=== PATIENT | female | born 1950 | race Caucasian/White ===

== ENCOUNTER 2024-05-31 17:00 | Inpatient (IN) ==
[2024-05-31 18:01] LABS: Appearance,Urine Clear (Clear); Bacteria,Urine Many /hpf (0); Bilirubin,Urine Negative (Negative); Color,Urine Yellow; Glucose,Urine (UA) Negative (Negative); Ketones,Urine Negative (Negative); Leukocyte Esterase,Urine Small /uL (Negative); Nitrate,Urine Positive (Negative); Protein,Urine 30 mg/dL (Negative); Urine Blood Negative ery/mcL (Negative); Urine RBC 1 /hpf (0-3); Urine Squamous Epithelial Cell 2 /hpf (0-4); Urine WBC 35 /hpf (0-4); Urobilinogen,Urine Normal
[2024-05-31] MEDS: CEFEPIME 2 GM VIAL IV ONE (18:18)
[2024-05-31 18:50] LABS: Basophils # (Auto) 0.03 K/mcL (0.00-0.30); Basophils % (Auto) 0.3 % (0.0-2.0); Eosinophils # (Auto) 0.48 K/mcL (0.00-0.70); Hematocrit 42.2 % (34.1-44.9); Hemoglobin 12.5 g/dL (11.2-15.7); Lymphocytes % (Auto) 12.5 % (15.5-49.0); Mean Cell Volume 90.8 fL (80.0-100.0); Mean Corpuscular HGB Conc 29.6 g/dL (31.0-36.0); Mean Platelet Volume 10.2 fL (8.8-12.5); Monocytes # (Auto) 0.71 K/mcL (0.10-0.90); Monocytes % (Auto) 5.9 % (1.0-12.0); Neutrophils % (Auto) 76.3 % (38.0-78.0); Platelet Count 268 K/mcL (140-440); RBC 4.65 M/mcL (3.59-5.38); Red Cell Distribution Width 15.4 % (11.5-14.5)
[2024-05-31 19:14] LABS: ALT/SGPT 18 U/L (<40); AST/SGOT 38 U/L (<32); Albumin 3.6 gm/dL (3.2-5.2); Albumin/Globulin Ratio 1.2 (1.0-2.3); Alkaline Phosphatase 55 U/L (39-117); Bilirubin,Total 0.2 mg/dL (0.1-1.0); Blood Urea Nitrogen 48 mg/dL (8-23); Calcium 9.4 mg/dL (8.6-10.4); Carbon Dioxide 30 mmol/L (22-30); Chloride 101 mmol/L (96-108); Globulin 2.9 gm/dL (2.2-3.7); Glomerular Filtration Rate 37; Glucose 145 mg/dL (70-105); Potassium 5.5 mmol/L (3.3-5.1); Sodium 140 mmol/L (133-145); Thyroid Stimulating Hormone 4.72 uIU/mL (0.27-5.01)
[2024-05-31] MEDS: AZITHROMYCIN 500 MG in DEXTROSE 5% IN WATER 250 ML IV ONE (19:16)
[2024-05-31] MEDS ORDERED: DEXTROSE 50% 50 ML VIAL IV PRN ×2 (21:26)
[2024-05-31] MEDS ORDERED: SENNOSIDES 1 TABLET PO PRN (21:26)
[2024-05-31] MEDS ORDERED: ALBUTEROL SULFATE 2.5 MG/3 ML NEBULIZER NEB PRN (21:26)
[2024-05-31] MEDS ORDERED: DEXTROSE 31 GM ORAL.SUSP PO PRN ×2 (21:26)
[2024-05-31] MEDS ORDERED: LACTULOSE 20 GM/30 ML ORAL.SOL PO PRN (21:26)
[2024-05-31] MEDS ORDERED: ONDANSETRON 4 MG/2 ML VIAL IV PRN (21:26)
[2024-05-31] MEDS: DOCUSATE SODIUM 100 MG CAPSULE PO SCH (22:30)
[2024-05-31] MEDS: HEPARIN 5,000 UNIT/ML VIAL SQ SCH (22:40)
[2024-05-31] MEDS: 0.9 % SODIUM CHLORIDE 10 ML SYRINGE IV SCH (22:40)
[2024-05-31] MEDS: INSULIN LISPRO 1 UNIT/0.01 ML UNIT SQ SCH (22:46)
[2024-05-31 22:53] LABS: ABG Methemoglobin 0.3 % (0.4-1.5); Total Hemoglobin 13.1 gm/Dl (12.0-15.0); VBG Base Excess 4 (-2-3); VBG HCO3 31.5 mmol/L (24.0-28.0); VBG Oxygen Saturation 89.4 % (40.0-70.0); VBG PCO2 61.2 mmHg (41.0-51.0); VBG PH 7.33 U (7.32-7.42); VBG PO2 70.5 mmHg (25.0-40.0); VBG Total CO2 33.4 mmol/L (25.0-29.0)
[2024-05-31] MEDS: 0.9 % SODIUM CHLORIDE 1,000 ML IV ONE (23:10)
[2024-06-01] MEDS: IPRATROPIUM/ALBUTEROL 3 ML AMPUL.NEB NEB SCH
[2024-06-01] MEDS: CEFEPIME 2 GM VIAL IV SCH (00:30)
[2024-06-01 00:57] LABS: ABG Methemoglobin 0.4 % (0.4-1.5); Total Hemoglobin 12.9 gm/Dl (12.0-15.0); VBG Base Excess 3 (-2-3); VBG HCO3 30.9 mmol/L (24.0-28.0); VBG Oxygen Saturation 81.5 % (40.0-70.0); VBG PCO2 62.5 mmHg (41.0-51.0); VBG PH 7.31 U (7.32-7.42); VBG PO2 53.7 mmHg (25.0-40.0); VBG Total CO2 32.8 mmol/L (25.0-29.0)
[2024-06-01 05:37] LABS: Basophils # (Auto) 0.03 K/mcL (0.00-0.30); Basophils % (Auto) 0.3 % (0.0-2.0); Eosinophils # (Auto) 0.55 K/mcL (0.00-0.70); Eosinophils % (Auto) 6.1 % (0.0-7.0); Hematocrit 40.7 % (34.1-44.9); Hemoglobin 11.9 g/dL (11.2-15.7); Lymphocytes % (Auto) 22.2 % (15.5-49.0); Mean Cell Volume 92.3 fL (80.0-100.0); Mean Corpuscular HGB Conc 29.2 g/dL (31.0-36.0); Mean Platelet Volume 9.9 fL (8.8-12.5); Monocytes # (Auto) 0.68 K/mcL (0.10-0.90); Monocytes % (Auto) 7.6 % (1.0-12.0); Neutrophils % (Auto) 62.7 % (38.0-78.0); Platelet Count 229 K/mcL (140-440); RBC 4.41 M/mcL (3.59-5.38); Red Cell Distribution Width 15.3 % (11.5-14.5)
[2024-06-01 05:46] LABS: ABG Methemoglobin 0.2 % (0.4-1.5); Total Hemoglobin 13.4 gm/Dl (12.0-15.0); VBG Base Excess 2 (-2-3); VBG HCO3 28.4 mmol/L (24.0-28.0); VBG Oxygen Saturation 87.1 % (40.0-70.0); VBG PH 7.36 U (7.32-7.42); VBG PO2 65.7 mmHg (25.0-40.0); VBG Total CO2 29.9 mmol/L (25.0-29.0)
[2024-06-01 06:08] LABS: ALT/SGPT 15 U/L (<40); AST/SGOT 34 U/L (<32); Albumin 3.2 gm/dL (3.2-5.2); Albumin/Globulin Ratio 1.2 (1.0-2.3); Alkaline Phosphatase 46 U/L (39-117); Bilirubin,Direct < 0.2 mg/dL (0-0.3); Bilirubin,Total 0.2 mg/dL (0.1-1.0); Blood Urea Nitrogen 45 mg/dL (8-23); Calcium 9.1 mg/dL (8.6-10.4); Carbon Dioxide 29 mmol/L (22-30); Chloride 106 mmol/L (96-108); Globulin 2.6 gm/dL (2.2-3.7); Glomerular Filtration Rate 37; Glucose 57 mg/dL (70-105); Lactate Dehydrogenase 122 U/L (135-225); Phosphorous 4.1 mg/dL (2.5-4.5); Potassium 4.5 mmol/L (3.3-5.1); Sodium 144 mmol/L (133-145); Triglycerides 140 mg/dL (<150); Uric Acid 3.6 mg/dL (2.5-8.0)
[2024-06-01] MEDS: FUROSEMIDE 20 MG TABLET PO SCH (14:52)
[2024-06-01] MEDS: METOPROLOL SUCCINATE 25 MG TAB.XL.24H PO SCH (14:52)
[2024-06-01] MEDS: INSULIN GLARGINE, HUMAN 1 UNIT/0.01 ML SQ SCH (20:14)
[2024-06-01] MEDS: AMITRIPTYLINE 25 MG TABLET PO SCH (20:15)
[2024-06-01] MEDS: SERTRALINE 50 MG TABLET PO SCH (20:15)
[2024-06-01] MEDS: ACETAMINOPHEN 325 MG TABLET PO PRN (20:15)
[2024-06-01] MEDS: PREGABALIN 75 MG CAPSULE PO SCH (20:15)
[2024-06-02 05:42] LABS: Basophils # (Auto) 0.03 K/mcL (0.00-0.30); Basophils % (Auto) 0.4 % (0.0-2.0); Eosinophils # (Auto) 0.54 K/mcL (0.00-0.70); Eosinophils % (Auto) 6.4 % (0.0-7.0); Hematocrit 39.8 % (34.1-44.9); Lymphocytes # (Auto) 1.71 K/mcL (1.50-4.80); Lymphocytes % (Auto) 20.1 % (15.5-49.0); Mean Cell Volume 89.6 fL (80.0-100.0); Mean Corpuscular HGB Conc 30.2 g/dL (31.0-36.0); Mean Platelet Volume 10.3 fL (8.8-12.5); Monocytes # (Auto) 0.69 K/mcL (0.10-0.90); Monocytes % (Auto) 8.1 % (1.0-12.0); Neutrophils % (Auto) 63.8 % (38.0-78.0); Platelet Count 215 K/mcL (140-440); RBC 4.44 M/mcL (3.59-5.38); Red Cell Distribution Width 15.5 % (11.5-14.5); WBC 8.5 K/mcL (4.5-11.0)
[2024-06-02 06:19] LABS: ALT/SGPT 17 U/L (<40); AST/SGOT 37 U/L (<32); Albumin 3.3 gm/dL (3.2-5.2); Albumin/Globulin Ratio 1.2 (1.0-2.3); Alkaline Phosphatase 47 U/L (39-117); Bilirubin,Direct < 0.2 mg/dL (0-0.3); Bilirubin,Total 0.2 mg/dL (0.1-1.0); Blood Urea Nitrogen 40 mg/dL (8-23); Calcium 8.9 mg/dL (8.6-10.4); Carbon Dioxide 31 mmol/L (22-30); Chloride 102 mmol/L (96-108); Globulin 2.7 gm/dL (2.2-3.7); Glomerular Filtration Rate 34; Glucose 105 mg/dL (70-105); Lactate Dehydrogenase 126 U/L (135-225); Phosphorous 4.5 mg/dL (2.5-4.5); Potassium 4.5 mmol/L (3.3-5.1); Sodium 141 mmol/L (133-145); Triglycerides 199 mg/dL (<150); Uric Acid 4.1 mg/dL (2.5-8.0)
[2024-06-02] MEDS: LEVOTHYROXINE 25 MCG TABLET PO SCH (07:48)
[2024-06-02] MEDS: LEVOTHYROXINE 100 MCG TABLET PO SCH (07:48)
[2024-06-02] MEDS: CLOPIDOGREL 75 MG TABLET PO SCH (09:07)
[2024-06-02] MEDS: ASPIRIN 81 MG TAB.CHEW PO SCH (09:07)
[2024-06-02] MEDS: ALLOPURINOL 300 MG TABLET PO SCH (09:07)
[2024-06-02] MEDS: ATORVASTATIN 40 MG TABLET PO SCH (09:07)
[2024-06-02] MEDS: FLU VACC TS2024-25(65YR UP)/PF 180 MCG/0.5 ML SYRINGE IM ONE (09:16)
[2024-06-02] MEDS ORDERED: CEFEPIME 2 GM VIAL IV SCH (21:00)
== END 2024-06-02 11:08 | disposition home health service (06) | DRG 70 ==
LOC: ED 17:00 → ICU 21:22
PROVIDERS: ADMIT Internal Medicine; ATTEND Internal Medicine

== ENCOUNTER 2024-06-26 13:49 | Inpatient (IN) ==
[2024-06-26] MEDS ORDERED: IOPAMIDOL 100 ML BOTTLE IV ONE (13:50)
[2024-06-26] MEDS: DEXTROSE 50% 50 ML SYRINGE IV ONE ×2 (14:14→17:24)
[2024-06-26] MEDS: DEXTROSE 50% 50 ML VIAL IV ONE (14:15)
[2024-06-26] MEDS: 0.9 % SODIUM CHLORIDE 1,000 ML IV ONE (14:41)
[2024-06-26 15:14] LABS: Basophils # (Auto) 0.04 K/mcL (0.00-0.30); Basophils % (Auto) 0.3 % (0.0-2.0); Eosinophils # (Auto) 0.35 K/mcL (0.00-0.70); Hematocrit 43.5 % (34.1-44.9); Hemoglobin 13.2 g/dL (11.2-15.7); Lymphocytes # (Auto) 2.54 K/mcL (1.50-4.80); Lymphocytes % (Auto) 21.8 % (15.5-49.0); Mean Cell Volume 89.9 fL (80.0-100.0); Mean Corpuscular HGB Conc 30.3 g/dL (31.0-36.0); Monocytes % (Auto) 8.6 % (1.0-12.0); Neutrophils % (Auto) 65.8 % (38.0-78.0); Platelet Count 257 K/mcL (140-440); RBC 4.84 M/mcL (3.59-5.38); WBC 11.7 K/mcL (4.5-11.0)
[2024-06-26 15:24] LABS: Alcohol, Blood < 10.1 mg/dL; Alcohol,Blood < 0.010 gm/dL (<0.010)
[2024-06-26 15:36] LABS: ALT/SGPT 18 U/L (<40); AST/SGOT 38 U/L (<32); Albumin 3.6 gm/dL (3.2-5.2); Albumin/Globulin Ratio 1.2 (1.0-2.3); Alkaline Phosphatase 47 U/L (39-117); Bilirubin,Total 0.2 mg/dL (0.1-1.0); Blood Urea Nitrogen 61 mg/dL (8-23); Calcium 9.6 mg/dL (8.6-10.4); Carbon Dioxide 25 mmol/L (22-30); Chloride 102 mmol/L (96-108); Glomerular Filtration Rate 37; Glucose 123 mg/dL (70-105); Potassium 5.3 mmol/L (3.3-5.1); Sodium 139 mmol/L (133-145); Thyroid Stimulating Hormone 4.84 uIU/mL (0.27-5.01)
[2024-06-26] MEDS: NALOXONE 2 MG/2 ML SYRINGE ONE (15:54)
[2024-06-26 15:55] LABS: Free T4 (Free Thyroxine) 0.99 ng/dL (0.93-1.70)
[2024-06-26] MEDS: DEXTROSE 5%-NS 1,000 ML IV SCH ×2 (15:59→17:24)
[2024-06-26 16:06] LABS: Appearance,Urine HAZY (Clear); Color,Urine YELLOW
[2024-06-26 16:07] LABS: Bacteria,Urine FEW /hpf (0); Bilirubin,Urine Negative (Negative); Glucose,Urine (UA) Negative (Negative); Ketones,Urine Negative (Negative); Leukocyte Esterase,Urine 500 /uL (Negative); Mucus,Urine FEW /hpf; Nitrate,Urine Negative (Negative); Protein,Urine Negative (Negative); Specific Gravity,Urine 1.014 (1.000-1.035); Urine Blood Negative (Negative); Urine RBC 5 /hpf (0-3); Urine Squamous Epithelial Cell 4 /hpf (0-4); Urine Transitional Epi Cells < 1 /hpf (0-2); Urine WBC 96 /hpf (0-4); Urobilinogen,Urine Negative
[2024-06-26 16:16] LABS: Amphetamine Screen,Urine None detected; Barbiturate Screen,Urine None detected; Benzodiazepines Screen,Urine None detected; Cannabinoid Screen,Urine None detected; Cocaine Screen,Urine None detected; Fentanyl, Urine Screen None Detected; Opiate Screen,Urine None detected; Oxycodone, Urine Screen None detected; Phencyclidine Screen,Urine None detected
[2024-06-26] MEDS: cefTRIAXone 1 GM VIAL IV ONE (16:39)
[2024-06-26] MEDS: DEXTROSE 25 % 10ML SYRINGE (PEDIATRIC) IV ONE (17:18)
[2024-06-26] MEDS ORDERED: MAGNESIUM SULFATE 2 GM/50 ML BAG IV PRN (19:43)
[2024-06-26] MEDS ORDERED: POTASSIUM CHLORIDE 40 MEQ in DEXTROSE 5% IN WATER 500 ML IV PRN (19:43)
[2024-06-26] MEDS ORDERED: METOCLOPRAMIDE 10 MG/2 ML VIAL IV PRN (19:43)
[2024-06-26] MEDS ORDERED: LABETALOL HCL 20 MG/4 ML VIAL IV PRN (19:43)
[2024-06-26] MEDS ORDERED: DEXTROSE 31 GM ORAL.SUSP PO PRN (19:43)
[2024-06-26] MEDS ORDERED: ONDANSETRON 4 MG/2 ML VIAL IV PRN (19:43)
[2024-06-26] MEDS ORDERED: POLYETHYLENE GLYCOL 3350 17 GM PACKET PO PRN (19:43)
[2024-06-26] MEDS ORDERED: POTASSIUM CHLORIDE 20 MEQ TABLET PO PRN ×2 (19:43)
[2024-06-26] MEDS ORDERED: SENNOSIDES 1 TABLET PO PRN (19:43)
[2024-06-26] MEDS ORDERED: DEXTROSE 50% 50 ML VIAL IV PRN (19:43)
[2024-06-26] MEDS: LEVOFLOXACIN 750 MG/150 ML BAG IV SCH (20:37)
[2024-06-26] MEDS: DEXTROSE 5%-NS 500 ML IV ONE (20:37)
[2024-06-26] MEDS: HEPARIN 5,000 UNIT/ML VIAL SQ SCH (20:37)
[2024-06-26] MEDS: DOCUSATE SODIUM 100 MG CAPSULE PO SCH (20:37)
[2024-06-26] MEDS: INSULIN LISPRO 1 UNIT/0.01 ML UNIT SQ SCH (20:47)
[2024-06-27 06:08] LABS: Basophils # (Auto) 0.03 K/mcL (0.00-0.30); Basophils % (Auto) 0.4 % (0.0-2.0); Eosinophils # (Auto) 0.37 K/mcL (0.00-0.70); Eosinophils % (Auto) 5.2 % (0.0-7.0); Hematocrit 39.6 % (34.1-44.9); Hemoglobin 11.7 g/dL (11.2-15.7); Lymphocytes # (Auto) 1.28 K/mcL (1.50-4.80); Lymphocytes % (Auto) 17.9 % (15.5-49.0); Mean Cell Volume 91.5 fL (80.0-100.0); Mean Corpuscular HGB Conc 29.5 g/dL (31.0-36.0); Monocytes # (Auto) 0.67 K/mcL (0.10-0.90); Monocytes % (Auto) 9.4 % (1.0-12.0); Neutrophils % (Auto) 66.5 % (38.0-78.0); Platelet Count 193 K/mcL (140-440); RBC 4.33 M/mcL (3.59-5.38); Red Cell Distribution Width 16.3 % (11.5-14.5); WBC 7.2 K/mcL (4.5-11.0)
[2024-06-27 06:43] LABS: ALT/SGPT 15 U/L (<40); AST/SGOT 30 U/L (<32); Albumin 3.5 gm/dL (3.2-5.2); Albumin/Globulin Ratio 1.3 (1.0-2.3); Alkaline Phosphatase 43 U/L (39-117); Bilirubin,Direct < 0.2 mg/dL (0-0.3); Bilirubin,Total < 0.2 mg/dL (0.1-1.0); Blood Urea Nitrogen 46 mg/dL (8-23); Calcium 8.8 mg/dL (8.6-10.4); Carbon Dioxide 28 mmol/L (22-30); Chloride 107 mmol/L (96-108); Globulin 2.6 gm/dL (2.2-3.7); Glomerular Filtration Rate 44; Glucose 78 mg/dL (70-105); Lactate Dehydrogenase 134 U/L (135-225); Phosphorous 3.7 mg/dL (2.5-4.5); Potassium 5.1 mmol/L (3.3-5.1); Sodium 143 mmol/L (133-145); Triglycerides 106 mg/dL (<150); Uric Acid 3.7 mg/dL (2.5-8.0)
[2024-06-27] MEDS: AMPICILLIN SODIUM 1 GM in 0.9 % SODIUM CHLORIDE 50 ML IV SCH (15:26)
[2024-06-27] MEDS: GABAPENTIN 300 MG CAPSULE PO SCH (20:28)
[2024-06-27] MEDS: AMITRIPTYLINE 25 MG TABLET PO SCH (20:28)
[2024-06-28] MEDS: LEVOTHYROXINE 25 MCG TABLET PO SCH (08:02)
[2024-06-28] MEDS: LEVOTHYROXINE 100 MCG TABLET PO SCH (08:02)
[2024-06-28] MEDS: ASPIRIN 81 MG TAB.CHEW PO SCH (09:02)
[2024-06-28] MEDS: ATORVASTATIN 40 MG TABLET PO SCH (09:02)
[2024-06-28] MEDS: amLODIPine 5 MG TABLET PO SCH (09:02)
[2024-06-28] MEDS: METOPROLOL SUCCINATE 25 MG TAB.XL.24H PO SCH (09:02)
[2024-06-28] MEDS: ALLOPURINOL 300 MG TABLET PO SCH (09:02)
[2024-06-28] MEDS: PREGABALIN 25 MG CAPSULE PO SCH (09:15)
[2024-06-28] MEDS: PREGABALIN 75 MG CAPSULE PO SCH (09:23)
[2024-06-28] MEDS: glipiZIDE 5 MG TABLET PO SCH (11:02)
[2024-06-28] MEDS: IPRATROPIUM/ALBUTEROL 3 ML AMPUL.NEB NEB PRN (13:46)
[2024-06-28] MEDS: GABAPENTIN 300 MG CAPSULE PO SCH (21:53)
== END 2024-06-29 11:30 | DRG 689 ==
LOC: ED 13:49 → MEDSUR 19:34
PROVIDERS: ADMIT Internal Medicine; ATTEND Internal Medicine

== ENCOUNTER 2024-10-03 17:17 | Inpatient (IN) ==
[2024-10-03 18:03] LABS: Basophils # (Auto) 0.04 K/mcL (0.00-0.30); Basophils % (Auto) 0.3 % (0.0-2.0); Eosinophils # (Auto) 0.36 K/mcL (0.00-0.70); Hematocrit 40.7 % (34.1-44.9); Hemoglobin 12.8 g/dL (11.2-15.7); Lymphocytes # (Auto) 1.48 K/mcL (1.50-4.80); Lymphocytes % (Auto) 12.5 % (15.5-49.0); Mean Cell Volume 90.4 fL (80.0-100.0); Mean Corpuscular HGB Conc 31.4 g/dL (31.0-36.0); Mean Platelet Volume 10.4 fL (8.8-12.5); Monocytes # (Auto) 0.93 K/mcL (0.10-0.90); Monocytes % (Auto) 7.9 % (1.0-12.0); Neutrophils % (Auto) 75.5 % (38.0-78.0); Platelet Count 202 K/mcL (140-440); Red Cell Distribution Width 15.8 % (11.5-14.5); WBC 11.8 K/mcL (4.5-11.0)
[2024-10-03 18:12] LABS: Prothrombin Time 13.5 sec (11.9-14.5)
[2024-10-03 18:18] LABS: proBNP 52.6 pg/mL (<450.0)
[2024-10-03 18:27] LABS: ALT/SGPT 23 U/L (<40); AST/SGOT 29 U/L (<32); Albumin 4.1 gm/dL (3.2-5.2); Albumin/Globulin Ratio 1.1 (1.0-2.3); Alkaline Phosphatase 127 U/L (39-117); Bilirubin,Total 0.2 mg/dL (0.1-1.0); Blood Urea Nitrogen 78 mg/dL (8-23); Calcium 11.3 mg/dL (8.6-10.4); Carbon Dioxide 27 mmol/L (22-30); Chloride 98 mmol/L (96-108); Globulin 3.6 gm/dL (2.2-3.7); Glomerular Filtration Rate 37; Glucose 304 mg/dL (70-105); Potassium 5.7 mmol/L (3.3-5.1); Sodium 137 mmol/L (133-145)
[2024-10-03 18:30] LABS: ABG Methemoglobin 0.3 % (0.4-1.5); Total Hemoglobin 14.1 gm/Dl (12.0-15.0); VBG Base Excess 0 (-2-3); VBG HCO3 27.1 mmol/L (24.0-28.0); VBG Oxygen Saturation 91.2 % (40.0-70.0); VBG PCO2 56.4 mmHg (41.0-51.0); VBG PO2 88.9 mmHg (25.0-40.0); VBG Total CO2 28.9 mmol/L (25.0-29.0)
[2024-10-03] MEDS: IPRATROPIUM/ALBUTEROL 3 ML AMPUL.NEB NEB ONE (19:25)
[2024-10-03] MEDS: 0.9 % SODIUM CHLORIDE 500 ML IV ONE ×3 (19:32→22:02)
[2024-10-03] MEDS: LEVOFLOXACIN 750 MG/150 ML BAG IV ONE (19:32)
[2024-10-03 20:02] LABS: Appearance,Urine Clear (Clear); Bacteria,Urine Many /hpf (0); Bilirubin,Urine Negative (Negative); Color,Urine Yellow; Glucose,Urine (UA) 500 mg/dL (Negative); Ketones,Urine Negative (Negative); Leukocyte Esterase,Urine Negative /uL (Negative); Nitrate,Urine Negative (Negative); PH,Urine 5.5 (5.0-9.0); Protein,Urine Negative (Negative); Specific Gravity,Urine 1.015 (1.000-1.035); Urine Blood Negative ery/mcL (Negative); Urine RBC 0 /hpf (0-3); Urine Squamous Epithelial Cell 1 /hpf (0-4); Urine WBC 12 /hpf (0-4); Urobilinogen,Urine Normal
[2024-10-03] MEDS: INSULIN REGULAR, HUMAN 1 UNIT/0.01 ML UNIT IV ONE (21:34)
[2024-10-03] MEDS: FUROSEMIDE 20 MG/2 ML VIAL IV ONE (21:34)
[2024-10-03 23:10] LABS: ABG Methemoglobin 0.1 % (0.4-1.5); Total Hemoglobin 12.8 gm/Dl (12.0-15.0); VBG Base Excess -1 (-2-3); VBG HCO3 23.6 mmol/L (24.0-28.0); VBG Oxygen Saturation 87.8 % (40.0-70.0); VBG PCO2 38.6 mmHg (41.0-51.0); VBG PO2 67.1 mmHg (25.0-40.0); VBG Total CO2 24.8 mmol/L (25.0-29.0)
[2024-10-03 23:24] LABS: Blood Urea Nitrogen 72 mg/dL (8-23); Calcium 10.3 mg/dL (8.6-10.4); Carbon Dioxide 25 mmol/L (22-30); Chloride 101 mmol/L (96-108); Glomerular Filtration Rate 40; Glucose 230 mg/dL (70-105); Potassium 4.8 mmol/L (3.3-5.1); Sodium 138 mmol/L (133-145)
[2024-10-03] MEDS: ACETAMINOPHEN 1,000 MG/100 ML BAG IV ONE (23:56)
[2024-10-04] MEDS: fentaNYL 100 MCG/2 ML VIAL IV ONE (03:16)
[2024-10-04] MEDS ORDERED: MEROPENEM 1 GM in 0.9 % SODIUM CHLORIDE 50 ML IV SCH (03:30)
[2024-10-04] MEDS: MEROPENEM 1 GM in 0.9 % SODIUM CHLORIDE 50 ML IV ONE (03:57)
[2024-10-04 07:43] LABS: Basophils # (Auto) 0.03 K/mcL (0.00-0.30); Basophils % (Auto) 0.3 % (0.0-2.0); Eosinophils # (Auto) 0.44 K/mcL (0.00-0.70); Eosinophils % (Auto) 4.5 % (0.0-7.0); Hematocrit 38.4 % (34.1-44.9); Lymphocytes # (Auto) 2.31 K/mcL (1.50-4.80); Lymphocytes % (Auto) 23.8 % (15.5-49.0); Mean Cell Volume 90.1 fL (80.0-100.0); Mean Corpuscular HGB Conc 31.3 g/dL (31.0-36.0); Mean Platelet Volume 10.3 fL (8.8-12.5); Monocytes # (Auto) 0.78 K/mcL (0.10-0.90); Neutrophils % (Auto) 62.6 % (38.0-78.0); Platelet Count 188 K/mcL (140-440); RBC 4.26 M/mcL (3.59-5.38); Red Cell Distribution Width 15.9 % (11.5-14.5); WBC 9.7 K/mcL (4.5-11.0)
[2024-10-04 08:05] LABS: ALT/SGPT 18 U/L (<40); AST/SGOT 26 U/L (<32); Albumin 3.5 gm/dL (3.2-5.2); Albumin/Globulin Ratio 1.1 (1.0-2.3); Alkaline Phosphatase 92 U/L (39-117); Bilirubin,Direct 0.2 mg/dL (<0.3); Bilirubin,Total 0.4 mg/dL (0.1-1.0); Blood Urea Nitrogen 66 mg/dL (8-23); Calcium 10.1 mg/dL (8.6-10.4); Carbon Dioxide 26 mmol/L (22-30); Chloride 98 mmol/L (96-108); Globulin 3.2 gm/dL (2.2-3.7); Glomerular Filtration Rate 40; Glucose 139 mg/dL (70-105); Lactate Dehydrogenase 126 U/L (135-225); Potassium 4.4 mmol/L (3.3-5.1); Sodium 138 mmol/L (133-145); Triglycerides 150 mg/dL (<150); Uric Acid 4.7 mg/dL (2.5-8.0)
[2024-10-04] MEDS ORDERED: LEVOTHYROXINE 100 MCG VIAL IV SCH (08:25)
[2024-10-04] MEDS ORDERED: DEXTROSE 31 GM ORAL.SUSP PO PRN (08:27)
[2024-10-04] MEDS ORDERED: DEXTROSE 50% 50 ML VIAL IV PRN (08:27)
[2024-10-04] MEDS: LEVOTHYROXINE 100 MCG VIAL IV SCH ×2 (08:47)
[2024-10-04] MEDS ORDERED: PATIENTS OWN MEDICATION 1 DOSE MISCELL INH PRN (12:11)
[2024-10-04 13:32] LABS: Hemoglobin A1C 9.3 % Hgb (4.0-6.0)
[2024-10-04] MEDS: INSULIN LISPRO 1 UNIT/0.01 ML UNIT SQ SCH (13:46)
[2024-10-04] MEDS: MEROPENEM 1 GM in 0.9 % SODIUM CHLORIDE 50 ML IV SCH (16:08)
[2024-10-04] MEDS: HEPARIN 5,000 UNIT/ML VIAL SQ SCH (16:09)
[2024-10-04] MEDS ORDERED: HEPARIN 5,000 UNIT/ML VIAL SQ SCH (21:00)
[2024-10-04] MEDS: AMITRIPTYLINE 25 MG TABLET PO SCH (21:19)
[2024-10-04] MEDS: SERTRALINE 50 MG TABLET PO SCH (21:19)
[2024-10-04] MEDS: fentaNYL 100 MCG/2 ML VIAL IV PRN (22:04)
[2024-10-05 06:05] LABS: Basophils # (Auto) 0.05 K/mcL (0.00-0.30); Basophils % (Auto) 0.5 % (0.0-2.0); Eosinophils # (Auto) 0.47 K/mcL (0.00-0.70); Eosinophils % (Auto) 4.7 % (0.0-7.0); Hematocrit 38.4 % (34.1-44.9); Hemoglobin 12.3 g/dL (11.2-15.7); Lymphocytes # (Auto) 1.43 K/mcL (1.50-4.80); Lymphocytes % (Auto) 14.4 % (15.5-49.0); Mean Cell Volume 89.9 fL (80.0-100.0); Mean Platelet Volume 10.7 fL (8.8-12.5); Monocytes # (Auto) 0.78 K/mcL (0.10-0.90); Monocytes % (Auto) 7.9 % (1.0-12.0); Neutrophils % (Auto) 71.8 % (38.0-78.0); Platelet Count 186 K/mcL (140-440); RBC 4.27 M/mcL (3.59-5.38); WBC 9.9 K/mcL (4.5-11.0)
[2024-10-05 06:20] LABS: ALT/SGPT 23 U/L (<40); AST/SGOT 37 U/L (<32); Albumin 3.6 gm/dL (3.2-5.2); Albumin/Globulin Ratio 1.2 (1.0-2.3); Alkaline Phosphatase 96 U/L (39-117); Bilirubin,Direct < 0.2 mg/dL (0-0.3); Bilirubin,Total 0.3 mg/dL (0.1-1.0); Blood Urea Nitrogen 58 mg/dL (8-23); Calcium 9.8 mg/dL (8.6-10.4); Carbon Dioxide 27 mmol/L (22-30); Chloride 100 mmol/L (96-108); Glomerular Filtration Rate 40; Glucose 250 mg/dL (70-105); Lactate Dehydrogenase 128 U/L (135-225); Phosphorous 3.6 mg/dL (2.5-4.5); Potassium 4.5 mmol/L (3.3-5.1); Sodium 138 mmol/L (133-145); Triglycerides 241 mg/dL (<150); Uric Acid 4.9 mg/dL (2.5-8.0)
[2024-10-05] MEDS: LEVOTHYROXINE 100 MCG TABLET PO SCH (07:30)
[2024-10-05] MEDS: INSULIN LISPRO 1 UNIT/0.01 ML UNIT SQ SCH (07:42)
[2024-10-05] MEDS: LEVOTHYROXINE 25 MCG TABLET PO SCH (07:42)
[2024-10-05] MEDS: INSULIN GLARGINE, HUMAN 1 UNIT/0.01 ML SQ SCH (09:30)
[2024-10-05] MEDS: ASPIRIN 81 MG TAB.CHEW PO SCH (10:03)
[2024-10-05] MEDS: FUROSEMIDE 20 MG TABLET PO SCH (10:03)
[2024-10-05] MEDS: ATORVASTATIN 40 MG TABLET PO SCH (10:04)
[2024-10-05] MEDS: METOPROLOL SUCCINATE 25 MG TAB.XL.24H PO SCH (10:06)
[2024-10-05] MEDS: ALLOPURINOL 300 MG TABLET PO SCH (10:07)
[2024-10-05] MEDS: PREGABALIN 75 MG CAPSULE PO SCH (10:12)
[2024-10-06] MEDS: ONDANSETRON 4 MG/2 ML VIAL IV PRN (07:34)
[2024-10-06 07:42] LABS: ALT/SGPT 20 U/L (<40); AST/SGOT 35 U/L (<32); Albumin 3.7 gm/dL (3.2-5.2); Albumin/Globulin Ratio 1.2 (1.0-2.3); Alkaline Phosphatase 95 U/L (39-117); Bilirubin,Direct 0.2 mg/dL (<0.3); Bilirubin,Total 0.4 mg/dL (0.1-1.0); Blood Urea Nitrogen 50 mg/dL (8-23); Carbon Dioxide 26 mmol/L (22-30); Chloride 99 mmol/L (96-108); Globulin 3.1 gm/dL (2.2-3.7); Glomerular Filtration Rate 40; Glucose 238 mg/dL (70-105); Lactate Dehydrogenase 137 U/L (135-225); Phosphorous 3.5 mg/dL (2.5-4.5); Potassium 4.3 mmol/L (3.3-5.1); Sodium 138 mmol/L (133-145); Triglycerides 215 mg/dL (<150)
[2024-10-06] MEDS ORDERED: INSULIN LISPRO 1 UNIT/0.01 ML UNIT SQ SCH ×2 (08:12→08:41)
[2024-10-06] MEDS: INSULIN LISPRO 1 UNIT/0.01 ML UNIT SQ SCH (08:54)
[2024-10-07] MEDS: INSULIN LISPRO 1 UNIT/0.01 ML UNIT SQ SCH (08:55)
[2024-10-07] MEDS: LOSARTAN 25 MG TABLET PO SCH (08:57)
[2024-10-07] MEDS: INSULIN GLARGINE, HUMAN 1 UNIT/0.01 ML SQ ONE (12:00)
[2024-10-07] MEDS: LEVOFLOXACIN 750 MG TABLET PO SCH (12:05)
[2024-10-08] MEDS: INSULIN GLARGINE, HUMAN 1 UNIT/0.01 ML SQ SCH (08:03)
[2024-10-08] MEDS: LOSARTAN 25 MG TABLET PO SCH (12:41)
[2024-10-08] MEDS: INSULIN GLARGINE, HUMAN 1 UNIT/0.01 ML SQ ONE ×2 (12:55→12:56)
[2024-10-09] MEDS: INSULIN GLARGINE, HUMAN 1 UNIT/0.01 ML SQ SCH (08:56)
[2024-10-09] MEDS ORDERED: INSULIN GLARGINE, HUMAN 1 UNIT/0.01 ML SQ SCH ×2 (09:00)
[2024-10-09 13:40] VITALS: TEMP 97.2; O2SAT 96
== END 2024-10-09 14:38 | disposition home or self-care (01) | DRG 689 ==
LOC: ED 17:17 → MEDSUR 10-04 05:00
PROVIDERS: ADMIT Internal Medicine; ATTEND Internal Medicine

== ENCOUNTER 2024-11-20 19:29 | Inpatient (IN) ==
[2024-11-20 20:51] LABS: Appearance,Urine Cloudy (Clear); Bacteria,Urine Many /hpf (0); Bilirubin,Urine Negative (Negative); Color,Urine Yellow; Glucose,Urine (UA) Negative (Negative); Ketones,Urine Negative (Negative); Leukocyte Esterase,Urine Large /uL (Negative); Nitrate,Urine Negative (Negative); PH,Urine 5.5 (5.0-9.0); Protein,Urine Negative (Negative); Specific Gravity,Urine 1.015 (1.000-1.035); Urine Blood Trace-intact ery/mcL (Negative); Urine RBC 3 /hpf (0-3); Urine Squamous Epithelial Cell 5 /hpf (0-4); Urine WBC > 182 /hpf (0-4); Urobilinogen,Urine Normal
[2024-11-20 21:30] LABS: Basophils # (Auto) 0.03 K/mcL (0.00-0.30); Basophils % (Auto) 0.2 % (0.0-2.0); Eosinophils # (Auto) 0.67 K/mcL (0.00-0.70); Eosinophils % (Auto) 4.9 % (0.0-7.0); Hematocrit 44.9 % (34.1-44.9); Lymphocytes # (Auto) 1.53 K/mcL (1.50-4.80); Lymphocytes % (Auto) 11.2 % (15.5-49.0); Mean Cell Volume 90.9 fL (80.0-100.0); Mean Corpuscular HGB Conc 31.2 g/dL (31.0-36.0); Mean Platelet Volume 11.1 fL (8.8-12.5); Monocytes # (Auto) 0.93 K/mcL (0.10-0.90); Monocytes % (Auto) 6.8 % (1.0-12.0); Neutrophils % (Auto) 75.7 % (38.0-78.0); Platelet Count 221 K/mcL (140-440); RBC 4.94 M/mcL (3.59-5.38); Red Cell Distribution Width 15.6 % (11.5-14.5); WBC 13.6 K/mcL (4.5-11.0)
[2024-11-20] MEDS: cefTRIAXone 1 GM VIAL IV ONE ×2 (21:35→23:54)
[2024-11-20 21:51] LABS: ALT/SGPT 16 U/L (<40); AST/SGOT 18 U/L (<32); Albumin 3.7 gm/dL (3.2-5.2); Alkaline Phosphatase 102 U/L (39-117); Bilirubin,Total 0.3 mg/dL (0.1-1.0); Blood Urea Nitrogen 78 mg/dL (8-23); Calcium 11.3 mg/dL (8.6-10.4); Carbon Dioxide 30 mmol/L (22-30); Chloride 97 mmol/L (96-108); Globulin 3.7 gm/dL (2.2-3.7); Glomerular Filtration Rate 31; Glucose 243 mg/dL (70-105); Potassium 5.5 mmol/L (3.3-5.1); Sodium 138 mmol/L (133-145)
[2024-11-20] MEDS ORDERED: METOCLOPRAMIDE 10 MG/2 ML VIAL IV PRN (23:05)
[2024-11-20] MEDS ORDERED: DEXTROSE 50% 50 ML VIAL IV PRN (23:05)
[2024-11-20] MEDS ORDERED: ONDANSETRON 4 MG/2 ML VIAL IV PRN (23:05)
[2024-11-20] MEDS ORDERED: POTASSIUM CHLORIDE 20 MEQ TABLET PO PRN ×2 (23:05)
[2024-11-20] MEDS ORDERED: OLANZapine 5 MG TABLET PO PRN (23:05)
[2024-11-20] MEDS ORDERED: IPRATROPIUM/ALBUTEROL 3 ML AMPUL.NEB NEB PRN (23:05)
[2024-11-20] MEDS ORDERED: DEXTROSE 31 GM ORAL.SUSP PO PRN (23:05)
[2024-11-20] MEDS ORDERED: SENNOSIDES 1 TABLET PO PRN (23:05)
[2024-11-20] MEDS ORDERED: MAGNESIUM SULFATE 2 GM/50 ML BAG IV PRN (23:05)
[2024-11-20] MEDS ORDERED: POTASSIUM CHLORIDE 40 MEQ in DEXTROSE 5% IN WATER 500 ML IV PRN (23:05)
[2024-11-20] MEDS ORDERED: POLYETHYLENE GLYCOL 3350 17 GM PACKET PO PRN (23:05)
[2024-11-20] MEDS: cefTRIAXone 2 GM in DEXTROSE 5% IN WATER 50 ML IV SCH (23:15)
[2024-11-20] MEDS: cefTRIAXone 1 GM VIAL ONE (23:54)
[2024-11-20] MEDS: 0.9 % SODIUM CHLORIDE 1,000 ML IV ONE (23:54)
[2024-11-21] MEDS: 0.9 % SODIUM CHLORIDE 10 ML SYRINGE IV SCH (04:10)
[2024-11-21 05:50] LABS: Basophils # (Auto) 0.03 K/mcL (0.00-0.30); Basophils % (Auto) 0.3 % (0.0-2.0); Eosinophils # (Auto) 0.77 K/mcL (0.00-0.70); Eosinophils % (Auto) 6.8 % (0.0-7.0); Hematocrit 40.7 % (34.1-44.9); Hemoglobin 12.7 g/dL (11.2-15.7); Lymphocytes % (Auto) 20.2 % (15.5-49.0); Mean Cell Volume 91.3 fL (80.0-100.0); Mean Corpuscular HGB Conc 31.2 g/dL (31.0-36.0); Mean Platelet Volume 10.9 fL (8.8-12.5); Monocytes # (Auto) 0.96 K/mcL (0.10-0.90); Monocytes % (Auto) 8.4 % (1.0-12.0); Neutrophils % (Auto) 63.1 % (38.0-78.0); Platelet Count 182 K/mcL (140-440); RBC 4.46 M/mcL (3.59-5.38); Red Cell Distribution Width 15.5 % (11.5-14.5); WBC 11.4 K/mcL (4.5-11.0)
[2024-11-21 06:25] LABS: ALT/SGPT 13 U/L (<40); AST/SGOT 15 U/L (<32); Albumin 3.3 gm/dL (3.2-5.2); Albumin/Globulin Ratio 1.1 (1.0-2.3); Alkaline Phosphatase 91 U/L (39-117); Bilirubin,Direct < 0.2 mg/dL (0-0.3); Bilirubin,Total 0.2 mg/dL (0.1-1.0); Blood Urea Nitrogen 72 mg/dL (8-23); Calcium 10.4 mg/dL (8.6-10.4); Carbon Dioxide 28 mmol/L (22-30); Chloride 100 mmol/L (96-108); Globulin 3.1 gm/dL (2.2-3.7); Glomerular Filtration Rate 34; Glucose 230 mg/dL (70-105); Lactate Dehydrogenase 119 U/L (135-225); Phosphorous 3.6 mg/dL (2.5-4.5); Potassium 4.3 mmol/L (3.3-5.1); Sodium 139 mmol/L (133-145); Triglycerides 156 mg/dL (<150); Uric Acid 4.2 mg/dL (2.5-8.0)
[2024-11-21] MEDS ORDERED: TRAMADOL PO PRN (08:30)
[2024-11-21] MEDS: DOCUSATE SODIUM 100 MG CAPSULE PO SCH (09:06)
[2024-11-21] MEDS: ACETAMINOPHEN 325 MG TABLET PO PRN (09:06)
[2024-11-21] MEDS: ASPIRIN 81 MG TAB.CHEW PO SCH (09:06)
[2024-11-21] MEDS: ATORVASTATIN 40 MG TABLET PO SCH (09:06)
[2024-11-21] MEDS: LEVOTHYROXINE 150 MCG TABLET PO SCH (09:06)
[2024-11-21] MEDS: SERTRALINE 50 MG TABLET PO SCH (09:06)
[2024-11-21] MEDS: LEVOTHYROXINE 75 MCG TABLET PO SCH (09:06)
[2024-11-21] MEDS: ALLOPURINOL 300 MG TABLET PO SCH (09:07)
[2024-11-21] MEDS: PREGABALIN 75 MG CAPSULE PO SCH (09:07)
[2024-11-21] MEDS: ENOXAPARIN 30 MG/0.3 ML SYRINGE SQ SCH (09:08)
[2024-11-21] MEDS: INSULIN, 75/25 NPL/LISPRO 1 UNIT/0.01 ML UNIT SQ SCH ×2 (09:18→20:13)
[2024-11-21] MEDS: INSULIN LISPRO 1 UNIT/0.01 ML UNIT SQ SCH (09:18)
[2024-11-21] MEDS: METOPROLOL SUCCINATE 25 MG TAB.XL.24H PO SCH (09:30)
[2024-11-21] MEDS: 0.9 % SODIUM CHLORIDE 500 ML IV ONE (12:25)
[2024-11-21] MEDS: AMITRIPTYLINE 25 MG TABLET PO SCH (20:13)
[2024-11-22 06:46] LABS: Basophils # (Auto) 0.03 K/mcL (0.00-0.30); Basophils % (Auto) 0.3 % (0.0-2.0); Eosinophils # (Auto) 0.67 K/mcL (0.00-0.70); Eosinophils % (Auto) 5.8 % (0.0-7.0); Hematocrit 42.5 % (34.1-44.9); Hemoglobin 13.1 g/dL (11.2-15.7); Lymphocytes % (Auto) 12.1 % (15.5-49.0); Mean Cell Volume 91.2 fL (80.0-100.0); Mean Corpuscular HGB Conc 30.8 g/dL (31.0-36.0); Mean Platelet Volume 10.5 fL (8.8-12.5); Monocytes # (Auto) 0.71 K/mcL (0.10-0.90); Monocytes % (Auto) 6.1 % (1.0-12.0); Neutrophils % (Auto) 74.6 % (38.0-78.0); Platelet Count 182 K/mcL (140-440); RBC 4.66 M/mcL (3.59-5.38); Red Cell Distribution Width 15.4 % (11.5-14.5); WBC 11.6 K/mcL (4.5-11.0)
[2024-11-22 07:03] LABS: Blood Urea Nitrogen 58 mg/dL (8-23); Calcium 10.3 mg/dL (8.6-10.4); Carbon Dioxide 29 mmol/L (22-30); Chloride 101 mmol/L (96-108); Glomerular Filtration Rate 40; Glucose 103 mg/dL (70-105); Potassium 4.4 mmol/L (3.3-5.1); Sodium 139 mmol/L (133-145)
[2024-11-22] MEDS: SERTRALINE 50 MG TABLET PO SCH (09:20)
[2024-11-22] MEDS: traMADol 50 MG TABLET PO PRN (21:21)
[2024-11-23 06:03] LABS: Basophils # (Auto) 0.03 K/mcL (0.00-0.30); Basophils % (Auto) 0.3 % (0.0-2.0); Eosinophils # (Auto) 0.71 K/mcL (0.00-0.70); Eosinophils % (Auto) 6.8 % (0.0-7.0); Hematocrit 39.6 % (34.1-44.9); Hemoglobin 12.3 g/dL (11.2-15.7); Lymphocytes # (Auto) 2.06 K/mcL (1.50-4.80); Lymphocytes % (Auto) 19.7 % (15.5-49.0); Mean Corpuscular HGB Conc 31.1 g/dL (31.0-36.0); Mean Platelet Volume 10.4 fL (8.8-12.5); Monocytes # (Auto) 0.89 K/mcL (0.10-0.90); Monocytes % (Auto) 8.5 % (1.0-12.0); Neutrophils % (Auto) 63.4 % (38.0-78.0); Platelet Count 175 K/mcL (140-440); RBC 4.35 M/mcL (3.59-5.38); Red Cell Distribution Width 15.6 % (11.5-14.5); WBC 10.5 K/mcL (4.5-11.0)
[2024-11-23] MEDS: LEVOTHYROXINE 75 MCG TABLET PO SCH (08:11)
[2024-11-23 11:57] VITALS: TEMP 97.9; O2SAT 94
== END 2024-11-23 13:10 | DRG 871 ==
LOC: ED 19:29 → MEDSUR 22:59
PROVIDERS: ADMIT Internal Medicine; ATTEND Internal Medicine

== ENCOUNTER 2025-04-12 07:59 | Inpatient (IN) ==
[2025-04-12] MEDS: LACTATED RINGERS 1,000 ML IV ONE ×2 (08:47→12:39)
[2025-04-12 08:53] LABS: Bacteria,Urine Few /hpf (0); Bilirubin,Urine Negative (Negative); Color,Urine Yellow; Glucose,Urine (UA) Negative (Negative); Ketones,Urine Negative (Negative); Leukocyte Esterase,Urine Small /uL (Negative); PH,Urine 6.0 (5.0-9.0); Protein,Urine 30 mg/dL (Negative); Specific Gravity,Urine 1.015 (1.000-1.035); Urobilinogen,Urine 0.2 mg/dL
[2025-04-12 09:00] LABS: Basophils # (Auto) 0.05 K/mcL (0.00-0.30); Basophils % (Auto) 0.4 % (0.0-2.0); Eosinophils # (Auto) 1.05 K/mcL (0.00-0.70); Eosinophils % (Auto) 7.5 % (0.0-7.0); Hematocrit 35.3 % (34.1-44.9); Hemoglobin 9.9 g/dL (11.2-15.7); Lymphocytes # (Auto) 1.77 K/mcL (1.50-4.80); Lymphocytes % (Auto) 12.6 % (15.5-49.0); Mean Corpuscular HGB Conc 28.0 g/dL (31.0-36.0); Monocytes # (Auto) 0.93 K/mcL (0.10-0.90); Monocytes % (Auto) 6.6 % (1.0-12.0); Neutrophils % (Auto) 72.4 % (38.0-78.0); Platelet Count 283 K/mcL (140-440); RBC 3.75 M/mcL (3.59-5.38); WBC 14.0 K/mcL (4.5-11.0)
[2025-04-12 09:21] LABS: ALT/SGPT 9 U/L (<40); AST/SGOT 12 U/L (<32); Albumin 3.4 gm/dL (3.2-5.2); Albumin/Globulin Ratio 1.0 (1.0-2.3); Alkaline Phosphatase 63 U/L (39-117); Anion Gap 8.0 (8.0-16.0); Bilirubin,Total 0.2 mg/dL (0.1-1.0); Blood Urea Nitrogen 58 mg/dL (8-23); Calcium 11.3 mg/dL (8.6-10.4); Carbon Dioxide 34 mmol/L (22-30); Chloride 107 mmol/L (96-108); Globulin 3.4 gm/dL (2.2-3.7); Glucose 82 mg/dL (70-105); Potassium 4.0 mmol/L (3.3-5.1); Sodium 149 mmol/L (133-145)
[2025-04-12] MEDS: cefTRIAXone 2 GM in DEXTROSE 5% IN WATER 50 ML IV ONE (12:08)
[2025-04-12] MEDS: IPRATROPIUM/ALBUTEROL 3 ML AMPUL.NEB NEB ONE (13:36)
[2025-04-12 14:25] LABS: ALT/SGPT 8 U/L (<40); AST/SGOT 12 U/L (<32); Albumin 3.2 gm/dL (3.2-5.2); Albumin/Globulin Ratio 1.0 (1.0-2.3); Alkaline Phosphatase 57 U/L (39-117); Anion Gap 8.0 (8.0-16.0); Bilirubin,Total < 0.2 mg/dL (0.1-1.0); Blood Urea Nitrogen 51 mg/dL (8-23); Calcium 10.7 mg/dL (8.6-10.4); Carbon Dioxide 33 mmol/L (22-30); Chloride 106 mmol/L (96-108); Globulin 3.1 gm/dL (2.2-3.7); Glucose 93 mg/dL (70-105); Potassium 3.9 mmol/L (3.3-5.1); Sodium 147 mmol/L (133-145)
[2025-04-12] MEDS: 0.45 % SODIUM CHLORIDE 1,000 ML IV SCH (16:52)
[2025-04-12] MEDS ORDERED: ONDANSETRON 4 MG/2 ML VIAL IV PRN (17:45)
[2025-04-12] MEDS ORDERED: DEXTROSE 31 GM ORAL.SUSP PO PRN (17:45)
[2025-04-12] MEDS ORDERED: DEXTROSE 50% 50 ML VIAL IV PRN (17:45)
[2025-04-12] MEDS: INSULIN LISPRO 1 UNIT/0.01 ML UNIT SQ SCH (17:55)
[2025-04-12] MEDS: SENNOSIDES 1 TABLET PO SCH (21:23)
[2025-04-12] MEDS: MELATONIN 3 MG TABLET PO SCH (21:24)
[2025-04-12] MEDS: HEPARIN 5,000 UNIT/ML VIAL SQ SCH (21:25)
[2025-04-12] MEDS: CIPROFLOXACIN 400 MG/200 ML BAG IV SCH (21:25)
[2025-04-12] MEDS: 0.9 % SODIUM CHLORIDE 10 ML SYRINGE IV SCH (21:31)
[2025-04-12 21:50] LABS: Anion Gap 9.0 (8.0-16.0); Blood Urea Nitrogen 47 mg/dL (8-23); Calcium 10.5 mg/dL (8.6-10.4); Carbon Dioxide 31 mmol/L (22-30); Chloride 103 mmol/L (96-108); Glucose 162 mg/dL (70-105); Potassium 3.6 mmol/L (3.3-5.1); Sodium 143 mmol/L (133-145)
[2025-04-13 07:35] LABS: ALT/SGPT 6 U/L (<40); AST/SGOT 11 U/L (<32); Albumin 3.1 gm/dL (3.2-5.2); Albumin/Globulin Ratio 1.0 (1.0-2.3); Alkaline Phosphatase 56 U/L (39-117); Anion Gap 6.0 (8.0-16.0); Bilirubin,Direct < 0.2 mg/dL (0-0.3); Bilirubin,Total 0.2 mg/dL (0.1-1.0); Blood Urea Nitrogen 41 mg/dL (8-23); Calcium 10.3 mg/dL (8.6-10.4); Carbon Dioxide 33 mmol/L (22-30); Chloride 104 mmol/L (96-108); Globulin 3.0 gm/dL (2.2-3.7); Glucose 125 mg/dL (70-105); Phosphorous 3.0 mg/dL (2.5-4.5); Potassium 3.9 mmol/L (3.3-5.1); Sodium 143 mmol/L (133-145); Triglycerides 166 mg/dL (<150); Uric Acid 6.1 mg/dL (2.5-8.0)
[2025-04-13 07:42] LABS: Basophils # (Auto) 0.03 K/mcL (0.00-0.30); Basophils % (Auto) 0.3 % (0.0-2.0); Eosinophils # (Auto) 0.99 K/mcL (0.00-0.70); Eosinophils % (Auto) 10.5 % (0.0-7.0); Hematocrit 31.6 % (34.1-44.9); Hemoglobin 9.1 g/dL (11.2-15.7); Lymphocytes # (Auto) 1.62 K/mcL (1.50-4.80); Lymphocytes % (Auto) 17.1 % (15.5-49.0); Mean Corpuscular HGB Conc 28.8 g/dL (31.0-36.0); Monocytes # (Auto) 0.77 K/mcL (0.10-0.90); Monocytes % (Auto) 8.1 % (1.0-12.0); Neutrophils % (Auto) 63.5 % (38.0-78.0); Platelet Count 231 K/mcL (140-440); RBC 3.44 M/mcL (3.59-5.38); WBC 9.5 K/mcL (4.5-11.0)
[2025-04-13] MEDS ORDERED: cefTRIAXone 1 GM VIAL IV SCH (09:00)
[2025-04-13] MEDS ORDERED: cefTRIAXone 2 GM in DEXTROSE 5% IN WATER 50 ML IV SCH (09:00)
[2025-04-13] MEDS: ACETAMINOPHEN 325 MG TABLET PO PRN (09:27)
[2025-04-13] MEDS ORDERED: VANCOMYCIN PER PHARMACY IV SCH ×2 (21:11→21:45)
[2025-04-13] MEDS: DOXYCYCLINE HYCLATE 100 MG TABLET.ORL PO SCH (21:15)
[2025-04-13] MEDS: HYDROcodone/APAP 10/325MG TABLET PO PRN (21:48)
[2025-04-13] MEDS: VANCOMYCIN 1,500 MG in 0.9 % SODIUM CHLORIDE 500 ML IV ONE (22:32)
[2025-04-14 06:20] LABS: Basophils # (Auto) 0.04 K/mcL (0.00-0.30); Basophils % (Auto) 0.4 % (0.0-2.0); Eosinophils # (Auto) 0.94 K/mcL (0.00-0.70); Eosinophils % (Auto) 10.1 % (0.0-7.0); Hematocrit 32.8 % (34.1-44.9); Hemoglobin 9.5 g/dL (11.2-15.7); Lymphocytes # (Auto) 1.48 K/mcL (1.50-4.80); Lymphocytes % (Auto) 15.8 % (15.5-49.0); Mean Corpuscular HGB Conc 29.0 g/dL (31.0-36.0); Monocytes # (Auto) 0.56 K/mcL (0.10-0.90); Monocytes % (Auto) 6.0 % (1.0-12.0); Neutrophils % (Auto) 67.4 % (38.0-78.0); Platelet Count 234 K/mcL (140-440); RBC 3.61 M/mcL (3.59-5.38); WBC 9.3 K/mcL (4.5-11.0)
[2025-04-14 06:32] LABS: ALT/SGPT 6 U/L (<40); AST/SGOT 11 U/L (<32); Albumin 3.1 gm/dL (3.2-5.2); Albumin/Globulin Ratio 1.0 (1.0-2.3); Alkaline Phosphatase 58 U/L (39-117); Anion Gap 8.0 (8.0-16.0); Bilirubin,Direct < 0.2 mg/dL (0-0.3); Bilirubin,Total < 0.2 mg/dL (0.1-1.0); Blood Urea Nitrogen 33 mg/dL (8-23); Calcium 10.2 mg/dL (8.6-10.4); Carbon Dioxide 31 mmol/L (22-30); Chloride 104 mmol/L (96-108); Globulin 3.0 gm/dL (2.2-3.7); Glucose 134 mg/dL (70-105); Phosphorous 2.9 mg/dL (2.5-4.5); Potassium 3.6 mmol/L (3.3-5.1); Sodium 143 mmol/L (133-145); Triglycerides 162 mg/dL (<150); Uric Acid 5.3 mg/dL (2.5-8.0)
[2025-04-14] MEDS: CIPROFLOXACIN 400 MG/200 ML BAG IV SCH (08:11)
[2025-04-14] MEDS: VANCOMYCIN 1,500 MG in 0.9 % SODIUM CHLORIDE 500 ML IV SCH (12:00)
[2025-04-14] MEDS: SERTRALINE 50 MG TABLET PO SCH (12:00)
[2025-04-14] MEDS: PREGABALIN 75 MG CAPSULE PO SCH (12:01)
[2025-04-14] MEDS: AMITRIPTYLINE 25 MG TABLET PO SCH (20:41)
[2025-04-14] MEDS ORDERED: [UNRECOGNIZED DRUG - OTHER] PO SCH (21:00)
[2025-04-15 06:02] LABS: Basophils # (Auto) 0.04 K/mcL (0.00-0.30); Basophils % (Auto) 0.4 % (0.0-2.0); Eosinophils # (Auto) 1.01 K/mcL (0.00-0.70); Eosinophils % (Auto) 10.3 % (0.0-7.0); Hematocrit 33.8 % (34.1-44.9); Hemoglobin 9.7 g/dL (11.2-15.7); Lymphocytes # (Auto) 1.30 K/mcL (1.50-4.80); Lymphocytes % (Auto) 13.2 % (15.5-49.0); Mean Corpuscular HGB Conc 28.7 g/dL (31.0-36.0); Monocytes # (Auto) 0.63 K/mcL (0.10-0.90); Monocytes % (Auto) 6.4 % (1.0-12.0); Neutrophils % (Auto) 69.4 % (38.0-78.0); Platelet Count 214 K/mcL (140-440); RBC 3.67 M/mcL (3.59-5.38); WBC 9.8 K/mcL (4.5-11.0)
[2025-04-15 06:18] LABS: ALT/SGPT 5 U/L (<40); AST/SGOT 12 U/L (<32); Albumin 3.1 gm/dL (3.2-5.2); Albumin/Globulin Ratio 1.0 (1.0-2.3); Alkaline Phosphatase 64 U/L (39-117); Anion Gap 7.0 (8.0-16.0); Bilirubin,Direct < 0.2 mg/dL (0-0.3); Bilirubin,Total 0.2 mg/dL (0.1-1.0); Blood Urea Nitrogen 29 mg/dL (8-23); Calcium 10.2 mg/dL (8.6-10.4); Carbon Dioxide 31 mmol/L (22-30); Chloride 104 mmol/L (96-108); Globulin 3.2 gm/dL (2.2-3.7); Glucose 128 mg/dL (70-105); Phosphorous 3.3 mg/dL (2.5-4.5); Potassium 3.9 mmol/L (3.3-5.1); Sodium 142 mmol/L (133-145); Triglycerides 175 mg/dL (<150); Uric Acid 5.0 mg/dL (2.5-8.0)
[2025-04-15] MEDS: LEVOTHYROXINE 25 MCG TABLET PO SCH (07:11)
[2025-04-15] MEDS: LEVOTHYROXINE 100 MCG TABLET PO SCH (07:11)
[2025-04-15] MEDS: ASPIRIN 81 MG TAB.CHEW PO SCH (08:54)
[2025-04-15] MEDS: VITAMIN D3 25 MCG TABLET PO SCH (08:54)
[2025-04-15] MEDS: ATORVASTATIN 40 MG TABLET PO SCH (08:54)
[2025-04-15] MEDS: ALLOPURINOL 300 MG TABLET PO SCH (08:55)
[2025-04-15] MEDS: METOPROLOL SUCCINATE 25 MG TAB.XL.24H PO SCH (08:55)
[2025-04-15] MEDS: INSULIN GLARGINE, HUMAN 1 UNIT/0.01 ML SQ SCH (21:26)
[2025-04-15] MEDS: INSULIN GLARGINE, HUMAN 1 UNIT/0.01 ML SQ ONE (21:26)
[2025-04-15] MEDS: PREGABALIN 100 MG CAPSULE PO ONE (21:27)
[2025-04-15] MEDS: PREGABALIN 75 MG CAPSULE PO ONE (21:53)
[2025-04-16 06:23] LABS: Basophils # (Auto) 0.04 K/mcL (0.00-0.30); Basophils % (Auto) 0.4 % (0.0-2.0); Eosinophils # (Auto) 0.91 K/mcL (0.00-0.70); Eosinophils % (Auto) 8.7 % (0.0-7.0); Hematocrit 33.0 % (34.1-44.9); Hemoglobin 9.4 g/dL (11.2-15.7); Lymphocytes # (Auto) 1.18 K/mcL (1.50-4.80); Lymphocytes % (Auto) 11.3 % (15.5-49.0); Mean Corpuscular HGB Conc 28.5 g/dL (31.0-36.0); Monocytes # (Auto) 0.77 K/mcL (0.10-0.90); Monocytes % (Auto) 7.4 % (1.0-12.0); Neutrophils % (Auto) 71.7 % (38.0-78.0); Platelet Count 206 K/mcL (140-440); RBC 3.58 M/mcL (3.59-5.38); WBC 10.5 K/mcL (4.5-11.0)
[2025-04-16 06:43] LABS: ALT/SGPT 9 U/L (<40); AST/SGOT 14 U/L (<32); Albumin 3.0 gm/dL (3.2-5.2); Albumin/Globulin Ratio 1.0 (1.0-2.3); Alkaline Phosphatase 68 U/L (39-117); Anion Gap 8.0 (8.0-16.0); Bilirubin,Direct < 0.2 mg/dL (0-0.3); Bilirubin,Total 0.2 mg/dL (0.1-1.0); Blood Urea Nitrogen 28 mg/dL (8-23); Calcium 10.2 mg/dL (8.6-10.4); Carbon Dioxide 30 mmol/L (22-30); Chloride 103 mmol/L (96-108); Globulin 3.0 gm/dL (2.2-3.7); Glucose 171 mg/dL (70-105); Phosphorous 3.2 mg/dL (2.5-4.5); Potassium 4.0 mmol/L (3.3-5.1); Sodium 141 mmol/L (133-145); Triglycerides 140 mg/dL (<150); Uric Acid 4.8 mg/dL (2.5-8.0)
[2025-04-16] MEDS ORDERED: fentaNYL 100 MCG/2 ML VIAL ONE (11:31)
[2025-04-16] MEDS ORDERED: PROPOFOL 200 MG/20 ML VIAL IV ONE ×2 (11:31→12:11)
[2025-04-16] MEDS ORDERED: ONDANSETRON 4 MG/2 ML VIAL ONE (11:39)
[2025-04-16] MEDS ORDERED: DEXAMETHASONE 10 MG/ML VIAL ONE (11:39)
[2025-04-16] MEDS ORDERED: GLYCOPYRROLATE 0.2 MG/ML VIAL IV ONE (11:39)
[2025-04-16] MEDS ORDERED: PHENYLephrine 1 MG/10 ML SYRINGE (ANEST) ONE (12:46)
[2025-04-16] MEDS: BUPIVACAINE 0.5% 50 ML VIAL IJ ONE (14:25)
[2025-04-16] MEDS: LACTATED RINGERS 500 ML IV ONE (15:05)
[2025-04-16] MEDS: LACTATED RINGERS 1,000 ML IV SCH (20:03)
[2025-04-16] MEDS: PREGABALIN 75 MG CAPSULE PO SCH (22:05)
[2025-04-17 06:52] LABS: Basophils # (Auto) 0.04 K/mcL (0.00-0.30); Basophils % (Auto) 0.4 % (0.0-2.0); Eosinophils # (Auto) 0.69 K/mcL (0.00-0.70); Eosinophils % (Auto) 6.3 % (0.0-7.0); Hematocrit 32.6 % (34.1-44.9); Hemoglobin 9.3 g/dL (11.2-15.7); Lymphocytes # (Auto) 1.06 K/mcL (1.50-4.80); Lymphocytes % (Auto) 9.7 % (15.5-49.0); Mean Corpuscular HGB Conc 28.5 g/dL (31.0-36.0); Monocytes # (Auto) 0.69 K/mcL (0.10-0.90); Monocytes % (Auto) 6.3 % (1.0-12.0); Neutrophils % (Auto) 77.0 % (38.0-78.0); Platelet Count 205 K/mcL (140-440); RBC 3.52 M/mcL (3.59-5.38); WBC 11.0 K/mcL (4.5-11.0)
[2025-04-17 07:31] LABS: Vancomycin,Random 15.5 ug/mL
[2025-04-17 07:42] LABS: ALT/SGPT 63 U/L (<40); AST/SGOT 85 U/L (<32); Albumin 3.0 gm/dL (3.2-5.2); Albumin/Globulin Ratio 0.9 (1.0-2.3); Alkaline Phosphatase 127 U/L (39-117); Anion Gap 8.0 (8.0-16.0); Bilirubin,Direct < 0.2 mg/dL (0-0.3); Bilirubin,Total 0.3 mg/dL (0.1-1.0); Blood Urea Nitrogen 29 mg/dL (8-23); Calcium 10.2 mg/dL (8.6-10.4); Carbon Dioxide 31 mmol/L (22-30); Chloride 104 mmol/L (96-108); Globulin 3.2 gm/dL (2.2-3.7); Glucose 141 mg/dL (70-105); Phosphorous 3.9 mg/dL (2.5-4.5); Potassium 4.5 mmol/L (3.3-5.1); Sodium 143 mmol/L (133-145); Triglycerides 137 mg/dL (<150); Uric Acid 5.4 mg/dL (2.5-8.0)
[2025-04-17] MEDS ORDERED: VANCOMYCIN 1,000 MG in 0.9 % SODIUM CHLORIDE 500 ML IV SCH (09:00)
[2025-04-17] MEDS: LACTATED RINGERS 1,000 ML IV SCH (09:10)
[2025-04-17] MEDS: VANCOMYCIN 1,000 MG in 0.9 % SODIUM CHLORIDE 250 ML IV SCH (09:10)
[2025-04-17] MEDS ORDERED: fentaNYL 100 MCG/2 ML VIAL ONE (10:05)
[2025-04-17] MEDS ORDERED: ZOLPIDEM 5 MG TABLET PO PRN (12:55)
[2025-04-17 12:57] LABS: Creatine Kinase 8 U/L (24-170)
[2025-04-17] MEDS ORDERED: DOXYCYCLINE HYCLATE 100 MG TABLET.ORL PO SCH (21:00)
[2025-04-17] MEDS: AMITRIPTYLINE 25 MG TABLET PO SCH (21:19)
[2025-04-17] MEDS: MUPIROCIN OINT 2% 22GM NARES SCH (21:20)
[2025-04-17] MEDS: CHLORHEXIDINE GLUCONATE 0.12% 473ML BOTTLE TOPICAL SCH (21:20)
[2025-04-18 06:14] LABS: Basophils # (Auto) 0.03 K/mcL (0.00-0.30); Basophils % (Auto) 0.2 % (0.0-2.0); Eosinophils # (Auto) 0.48 K/mcL (0.00-0.70); Eosinophils % (Auto) 3.6 % (0.0-7.0); Hematocrit 32.0 % (34.1-44.9); Hemoglobin 9.3 g/dL (11.2-15.7); Lymphocytes # (Auto) 0.87 K/mcL (1.50-4.80); Lymphocytes % (Auto) 6.6 % (15.5-49.0); Mean Corpuscular HGB Conc 29.1 g/dL (31.0-36.0); Monocytes # (Auto) 0.69 K/mcL (0.10-0.90); Monocytes % (Auto) 5.2 % (1.0-12.0); Neutrophils % (Auto) 83.6 % (38.0-78.0); Platelet Count 207 K/mcL (140-440); RBC 3.49 M/mcL (3.59-5.38); WBC 13.2 K/mcL (4.5-11.0)
[2025-04-18 06:51] LABS: ALT/SGPT 113 U/L (<40); AST/SGOT 100 U/L (<32); Albumin 2.9 gm/dL (3.2-5.2); Albumin/Globulin Ratio 0.9 (1.0-2.3); Alkaline Phosphatase 184 U/L (39-117); Anion Gap 7.0 (8.0-16.0); Bilirubin,Direct < 0.2 mg/dL (0-0.3); Bilirubin,Total 0.3 mg/dL (0.1-1.0); Blood Urea Nitrogen 31 mg/dL (8-23); Calcium 11.0 mg/dL (8.6-10.4); Carbon Dioxide 31 mmol/L (22-30); Chloride 103 mmol/L (96-108); Globulin 3.1 gm/dL (2.2-3.7); Glucose 200 mg/dL (70-105); Phosphorous 3.9 mg/dL (2.5-4.5); Potassium 4.7 mmol/L (3.3-5.1); Sodium 141 mmol/L (133-145); Triglycerides 125 mg/dL (<150); Uric Acid 5.6 mg/dL (2.5-8.0)
[2025-04-18] MEDS ORDERED: LINEZOLID 600 MG TABLET PO SCH (09:00)
[2025-04-18 15:30] LABS: Bacteria,Urine Many /hpf (0); Bilirubin,Urine Negative (Negative); Color,Urine Yellow; Glucose,Urine (UA) Negative (Negative); Ketones,Urine Negative (Negative); Leukocyte Esterase,Urine Moderate /uL (Negative); PH,Urine 6.0 (5.0-9.0); Protein,Urine 30 mg/dL (Negative); Specific Gravity,Urine 1.015 (1.000-1.035); Urobilinogen,Urine Normal
[2025-04-18] MEDS ORDERED: CEFEPIME 1 GM VIAL IV SCH (16:00)
[2025-04-18] MEDS: cefTRIAXone 2 GM in DEXTROSE 5% IN WATER 50 ML IV SCH (16:26)
[2025-04-19 06:32] LABS: ALT/SGPT 88 U/L (<40); AST/SGOT 51 U/L (<32); Albumin 2.9 gm/dL (3.2-5.2); Albumin/Globulin Ratio 1.0 (1.0-2.3); Alkaline Phosphatase 167 U/L (39-117); Anion Gap 8.0 (8.0-16.0); Bilirubin,Direct < 0.2 mg/dL (0-0.3); Bilirubin,Total < 0.2 mg/dL (0.1-1.0); Blood Urea Nitrogen 33 mg/dL (8-23); Calcium 11.1 mg/dL (8.6-10.4); Carbon Dioxide 30 mmol/L (22-30); Chloride 102 mmol/L (96-108); Globulin 3.0 gm/dL (2.2-3.7); Glucose 179 mg/dL (70-105); Phosphorous 4.0 mg/dL (2.5-4.5); Potassium 4.6 mmol/L (3.3-5.1); Sodium 140 mmol/L (133-145); Triglycerides 121 mg/dL (<150); Uric Acid 5.9 mg/dL (2.5-8.0)
[2025-04-19 06:36] LABS: Basophils # (Auto) 0.03 K/mcL (0.00-0.30); Basophils % (Auto) 0.3 % (0.0-2.0); Eosinophils # (Auto) 0.74 K/mcL (0.00-0.70); Eosinophils % (Auto) 6.4 % (0.0-7.0); Hematocrit 30.3 % (34.1-44.9); Hemoglobin 8.8 g/dL (11.2-15.7); Lymphocytes # (Auto) 1.53 K/mcL (1.50-4.80); Lymphocytes % (Auto) 13.3 % (15.5-49.0); Mean Corpuscular HGB Conc 29.0 g/dL (31.0-36.0); Monocytes # (Auto) 0.82 K/mcL (0.10-0.90); Monocytes % (Auto) 7.1 % (1.0-12.0); Neutrophils % (Auto) 72.1 % (38.0-78.0); Platelet Count 203 K/mcL (140-440); RBC 3.28 M/mcL (3.59-5.38); WBC 11.5 K/mcL (4.5-11.0)
[2025-04-19] MEDS: 0.9 % SODIUM CHLORIDE 1,000 ML IV SCH (10:42)
[2025-04-20 06:51] LABS: Basophils # (Auto) 0.04 K/mcL (0.00-0.30); Basophils % (Auto) 0.4 % (0.0-2.0); Eosinophils # (Auto) 0.81 K/mcL (0.00-0.70); Eosinophils % (Auto) 8.0 % (0.0-7.0); Hematocrit 31.1 % (34.1-44.9); Hemoglobin 8.8 g/dL (11.2-15.7); Lymphocytes # (Auto) 1.38 K/mcL (1.50-4.80); Lymphocytes % (Auto) 13.6 % (15.5-49.0); Mean Corpuscular HGB Conc 28.3 g/dL (31.0-36.0); Monocytes # (Auto) 0.87 K/mcL (0.10-0.90); Monocytes % (Auto) 8.6 % (1.0-12.0); Neutrophils % (Auto) 68.7 % (38.0-78.0); Platelet Count 193 K/mcL (140-440); RBC 3.34 M/mcL (3.59-5.38); WBC 10.2 K/mcL (4.5-11.0)
[2025-04-20 07:09] LABS: ALT/SGPT 74 U/L (<40); AST/SGOT 40 U/L (<32); Albumin 2.9 gm/dL (3.2-5.2); Albumin/Globulin Ratio 1.0 (1.0-2.3); Alkaline Phosphatase 171 U/L (39-117); Anion Gap 9.0 (8.0-16.0); Bilirubin,Direct < 0.2 mg/dL (0-0.3); Bilirubin,Total < 0.2 mg/dL (0.1-1.0); Blood Urea Nitrogen 33 mg/dL (8-23); Calcium 10.9 mg/dL (8.6-10.4); Carbon Dioxide 29 mmol/L (22-30); Chloride 103 mmol/L (96-108); Globulin 3.0 gm/dL (2.2-3.7); Glucose 182 mg/dL (70-105); Phosphorous 3.9 mg/dL (2.5-4.5); Potassium 4.4 mmol/L (3.3-5.1); Sodium 141 mmol/L (133-145); Triglycerides 111 mg/dL (<150); Uric Acid 5.7 mg/dL (2.5-8.0)
[2025-04-20] MEDS: 0.9 % SODIUM CHLORIDE 1,000 ML IV SCH (09:24)
[2025-04-20] MEDS: FUROSEMIDE 40 MG/4 ML VIAL IV ONE (09:57)
[2025-04-21 06:09] LABS: ALT/SGPT 66 U/L (<40); AST/SGOT 36 U/L (<32); Albumin 2.8 gm/dL (3.2-5.2); Albumin/Globulin Ratio 0.9 (1.0-2.3); Alkaline Phosphatase 175 U/L (39-117); Anion Gap 8.0 (8.0-16.0); Bilirubin,Direct < 0.2 mg/dL (0-0.3); Bilirubin,Total < 0.2 mg/dL (0.1-1.0); Blood Urea Nitrogen 34 mg/dL (8-23); C-Reactive Protein 8.01 mg/dL (0.03-0.80); Calcium 11.2 mg/dL (8.6-10.4); Carbon Dioxide 32 mmol/L (22-30); Chloride 103 mmol/L (96-108); Globulin 3.1 gm/dL (2.2-3.7); Glucose 158 mg/dL (70-105); Phosphorous 4.0 mg/dL (2.5-4.5); Potassium 4.1 mmol/L (3.3-5.1); Sodium 143 mmol/L (133-145); Triglycerides 114 mg/dL (<150); Uric Acid 6.2 mg/dL (2.5-8.0)
[2025-04-21] MEDS: FUROSEMIDE 20 MG TABLET PO SCH (08:37)
[2025-04-21] MEDS: POLYETHYLENE GLYCOL 3350 17 GM PACKET PO PRN (21:24)
[2025-04-22 04:24] VITALS: TEMP 98.2
[2025-04-22 06:27] LABS: ALT/SGPT 48 U/L (<40); AST/SGOT 21 U/L (<32); Albumin 2.9 gm/dL (3.2-5.2); Albumin/Globulin Ratio 0.9 (1.0-2.3); Alkaline Phosphatase 159 U/L (39-117); Anion Gap 10.0 (8.0-16.0); Bilirubin,Direct < 0.2 mg/dL (0-0.3); Bilirubin,Total < 0.2 mg/dL (0.1-1.0); Blood Urea Nitrogen 32 mg/dL (8-23); Calcium 11.2 mg/dL (8.6-10.4); Carbon Dioxide 32 mmol/L (22-30); Chloride 101 mmol/L (96-108); Globulin 3.2 gm/dL (2.2-3.7); Glucose 194 mg/dL (70-105); Phosphorous 3.4 mg/dL (2.5-4.5); Potassium 3.7 mmol/L (3.3-5.1); Sodium 143 mmol/L (133-145); Triglycerides 123 mg/dL (<150); Uric Acid 6.5 mg/dL (2.5-8.0)
[2025-04-22] MEDS: DOXYCYCLINE HYCLATE 100 MG TABLET.ORL PO SCH (09:49)
[2025-04-22 10:14] VITALS: O2SAT 94
== END 2025-04-22 11:15 | DRG 853 ==
LOC: ED 07:59 → MEDSUR 17:29
PROVIDERS: ADMIT Student in an Organized Health Care Education/Training Program; ATTEND Internal Medicine